=== PATIENT | female | born 1960 | race Caucasian/White ===

== ENCOUNTER 2024-11-03 11:45 | Day surgery (SDC) | payer OTHER ==
[~2024-11-03] VITALS: Ht 154.9 cm; Wt 75.8 kg
[~2024-11-03 11:45] MED LIST: Adipex-P37.5 M1 PO; Adipex-P37.5 MG; CALACE667G PO; CHOL10002; CLIM.025TP; Calcium 500 MG1 EACH; Cosamin Ds Tab1 EACH PO; FISH1000; Feosol45 MG; IRON150C PO; LEVSOD75; Multiple Vitam1 EAC1 PO; OSTEO BI-FLEX1 EAC2; Synthroid75 MCG; VITAMIN D32000 UNI1 PO
[2024-11-03 14:25] VITALS: BP 131/70
== END 2024-11-03 14:08 | disposition home or self-care (01) ==
LOC: ORSCSDS 11:45
PROVIDERS: Surgery
PROC: 0DBP8ZX Excision of Rectum, Via Natural or Artificial Opening Endoscopic, Diagnostic (ICD-10-PCS; principal; 2024-11-03 13:30)
DX: K62.5 Hemorrhage of anus and rectum (principal); C20 Malignant neoplasm of rectum; E03.9 Hypothyroidism, unspecified; Z87.891 Personal history of nicotine dependence; Z79.899 Other long term (current) drug therapy
CPT/HCPCS: 88305; J2704; J7120

== ENCOUNTER 2024-11-30 06:07 | Day surgery (SDC) | payer OTHER ==
[2024-11-30] VITALS (7 sets, daily range): BP systolic 120–146; BP diastolic 64–90
[~2024-11-30] VITALS: Ht 154.9 cm; Wt 77.6 kg
[~2024-11-30 06:07] MED LIST changes: +VITAMIN E100 UNI1 PO
[2024-11-30] MEDS ORDERED: CeFAZolin Sodium 2,000 MG in NS 100 ML IV SCH (06:20)
--- NOTE | 2024-11-30 06:41 | NUR ---
History, Chart, Medications and Allergies reviewed before start of procedure. Pre-Op teaching done. Pt verbalizes understanding. Patient confirms NPO status and agrees with scheduled surgery. PT REQUESTS TO LEAVE UNDERWEAR ON. PT REMOVED GLASSES AND PLACED IN BELONGINGS BAG. BELONGINGS BAG PLACED UNDER GURNEY.
[2024-11-30] MEDS ORDERED: Dexamethasone Sod Phos 10 MG/ML 1ML VIAL ONE (06:58)
[2024-11-30] MEDS ORDERED: Bupivacaine 0.5% HCl 5 MG/ML 30MLVIAL ONE (06:58)
[2024-11-30] MEDS ORDERED: Ondansetron HCl 2 MG / ML 2ML Vial ONE (06:58)
[2024-11-30] MEDS ORDERED: FentaNYL Citrate 50 MCG/ML 2 ML Injection ONE (06:58)
[2024-11-30] MEDS ORDERED: FentaNYL Citrate 50 MCG/ML 2 ML Injection IV PRN ×3 (07:00→07:05)
[2024-11-30] MEDS ORDERED: Metoclopramide HCl 5MG / ML 2ML Vial IV PRN (07:00)
[2024-11-30] MEDS ORDERED: HYDROmorphone HCl/Pf 1MG SYR IV PRN (07:05)
[2024-11-30] MEDS ORDERED: Midazolam HCl 1MG / ML 2ML Vial IV PRN (07:05)
[2024-11-30] MEDS ORDERED: Ondansetron HCl 2 MG / ML 2ML Vial IV PRN (07:05)
[2024-11-30] MEDS ORDERED: Ketorolac Tromethamine 30mg Vial ONE (07:37)
[2024-11-30] MEDS ORDERED: Phenylephrine HCl 100 MCG/ML-NS 10MLSYR (1MG/10ML) ONE (07:55)
[2024-11-30] MEDS ORDERED: HYDROcodone 5-APAP 325 TAB PO PRN (08:40)
--- NOTE | 2024-11-30 09:28 | NUR ---
Ambulatory in Day Surgery, pt able to dress herself independently. Discharge instructions reviewed with patient. Patient verbalizes understanding. Copy given to patient to take home as well as written prescription for pain medication. Dressing to procedure site clean, dry, intact with no visible drainage, swelling, erythema or bruising noted. Patient States Post-Procedure ride home has been arranged, spouse, Natanael, is providing transporation. Discharged via wheelchair to private car for ride home. IV removed from left hand, catheter intact.
== END 2024-11-30 09:35 | disposition home or self-care (01) ==
LOC: ORSCMMR 06:07 → ORD 07:30 → ORSCMMR 09:35
PROVIDERS: Surgery
PROC: 0JH63WZ Insertion of Totally Implantable Vascular Access Device into Chest Subcutaneous Tissue and Fascia, Percutaneous Approach (ICD-10-PCS; principal; 2024-11-30 07:30)
DX: C20 Malignant neoplasm of rectum (principal); E03.9 Hypothyroidism, unspecified; Z79.899 Other long term (current) drug therapy; Z87.891 Personal history of nicotine dependence
CPT/HCPCS: 77001; C1788; J0690; J1100; J1642; J1885; J2371; J2405; J2704; J3010; J7120

== ENCOUNTER → 2025-03-15 | Outpatient (CLI) | payer OTHER ==
[2025-03-15 09:33] LABS: BASOPHILS ABSOLUTE AUTO 0.06 K/mm3 (0.00-0.23); BASOPHILS PERCENT AUTO 0 % (0-2); EOSINOPHILS ABSOLUTE AUTO 0.07 K/mm3 (0.00-0.68); EOSINOPHILS PERCENT AUTO 1 % (0-6); Hematocrit 30.4 % (33.0-51.0); Hemoglobin 10.2 g/dL (11.5-16.0); IMMATURE GRAN ABSOLUTE AUTO 0.22 K/mm3 (0.00-0.10); IMMATURE GRAN PERCENT AUTO 2 % (0-1); LYMPHOCYTES ABSOLUTE AUTO 1.61 K/mm3 (0.84-5.20); LYMPHOCYTES PERCENT AUTO 12 % (21-46); MONOCYTES ABSOLUTE AUTO 0.90 K/mm3 (0.16-1.47); MONOCYTES PERCENT AUTO 7 % (4-13); Mean Corpuscular HGB Conc 33.6 g/dL (31.5-36.5); Mean Corpuscular Volume 102 fL (80-100); NEUTROPHILS ABSOLUTE AUTO 10.58 K/mm3 (1.96-9.15); NEUTROPHILS PERCENT AUTO 79 % (41-73); NRBC ABSOLUTE 0.00 K/mm3 (0.00-0.02); NRBC Auto 0.0 /100 WBC (0.0-0.2); Platelet Count 120 K/mm3 (150-400); RDW Coefficient Variation 20.6 % (11.7-14.2); RDW Standard Deviation 76.0 fL (35.1-46.3)
[2025-03-15 09:54] LABS: Alanine Aminotransfer (ALT/SGP 59.0 U/L (12-78); Albumin, Blood 3.8 g/dL (3.4-5.0); Albumin/Globulin Ratio 1.3 (0.8-1.8); Anion Gap 8.0 mmol/L (3-11); Aspartate Aminotrans (AST/SGOT 55.0 U/L (12-37); Bilirubin, Total 0.4 mg/dL (0.1-1.0); Blood Urea Nitrogen 11.0 mg/dL (8-24); CO2, Blood 28.0 mmol/L (21-32); Calcium, Blood 9.1 mg/dL (8.5-10.1); Chloride, Blood 106.0 mmol/L (98-108); Creatinine, Blood 0.64 mg/dL (0.40-1.00); Globulin, Blood 3.0 g/dL (2.2-4.0); Glucose, Blood 126.0 mg/dL (70-99); Potassium, Blood 3.1 mmol/L (3.5-5.5); Sodium, Blood 139.0 mmol/L (136-145); Total Protein, Blood 6.8 g/dL (6.4-8.2)
== END ==
LOC: LAB SHORT 08:45 → LAB 08:45
PROVIDERS: Internal Medicine Hematology & Oncology
DX: C20 Malignant neoplasm of rectum (principal)
CPT/HCPCS: 80053; 85025